=== PATIENT | male | born 1990 | race Caucasian/White ===

== ENCOUNTER 2023-08-27 13:02 | Emergency (ER) | payer BC ==
[~2023-08-27] VITALS: Ht 195 cm; Wt 129.0 kg
--- NOTE | 2023-08-27 13:29 | ED Trauma-Multisystem ---
General Chief Complaint: Trauma EMS/Air Arrival Activat Stated Complaint: HEAD INJ Nursing Triage Note: PT REPORTS HE FELL APPROX 7-8' OFF LADDER 10 MIN [employer]INICAL [employer]. ABRASIONS NOTED TO LT LEG ET HEMATOMA NOTED TO POSTERIOR HEAD. PT DENIES LOC ET NECK PAIN AT THIS TIME. DOES C/O BACK PAIN. ALSO REPORTS "CHRONIC NECK ET BACK PAIN". NO OTHER C/O VOICED. Source of Information: Patient Exam Limitations: No Limitations History of Present Illness Date Seen by Provider: Aug 27, 2023 Time Seen by Provider: 13:12 Initial Comments 33-year-old male presents to the ER after he fell off a ladder. Thinks he was approximately 5 to 7 feet in the air. He reports that he was putting up [place]oo[place] lights on the first story of his house, states that the ladder slipped down, his left leg slipped through the ladder and he fell. He thinks he landed hitting his back first and then the posterior portion of his head. He presents with multiple abrasions to the left leg, abrasion to right posterior shoulder, and hematoma to right posterior head. Allergies and Home Medications Allergies Coded Allergies: No Known Drug Allergies (Unverified , 08/27/23) Patient Home Medication List Home Medication List Reviewed: Yes Cyclobenzaprine HCl (Cyclobenzaprine HCl) 10 Mg Tablet, 10 MG PO Q8H Prescribed by: Tania Mckenzie on 08/27/23 1443 Hydrocodone/Acetaminophen (Hydrocodone-Acetamin 5-325 mg) 5 Mg-325 Mg Tablet, 1 TAB PO Q4H PRN for PAIN-MODERATE (5-7) Prescribed by: Tania Mckenzie on 08/27/23 1444 Review of Systems Review of Systems Constitutional: see HPI Past Hekuczu-Iizjtj-Skofwr Hx Patient Social History Tobacco Use?: No Use of E-Cig and/or Vaping dev: No Substance use?: No Alcohol Use?: No Pt feels they are or have been: No Past Medical History Surgery/Hospitalization HX: RT WRIST SURGERY Physical Exam Vital Signs Vital Signs - First Documented 08/27/23 13:17 Temp 37.0 Pulse 97 Resp 20 B/P (MAP) 146/88 (107) Pulse Ox 98 O2 Delivery Room Air Height, Weight, BMI Height: '" Weight: lbs. oz. kg; 33.00 BMI Method: General Appearance: No Apparent Distress, WD/WN Head: Other (Right posterior hematoma); No Active Bleeding, No Caldera's Sign Eyes: Bilateral Eye Normal Inspection, Bilateral Eye PERRL, Bilateral Eye EOMI Ears, Nose, Throat: Hearing Grossly Normal, No Evidence of ENT Injury Neck: Full Range of Motion, Normal Inspection, Non Tender, Supple Cardiovascular: Regular Rate, Rhythm Respiratory: Lungs Clear, Normal Breath Sounds, No Accessory Muscle Use, No Respiratory Distress Back: Vertebral Tenderness (Lower thoracic spine) Extremity: Normal Inspection, Normal Range of Motion Neurologic/Psychiatric: Alert, Oriented x3, No Motor/Sensory Deficits, sider II- XII Norm as Tested Skin: Normal Color, Warm/Dry Progress/Results/Core Measures Results/Orders My Orders Orders - TANIA WANG APRN Ct Head/Cervical Spine Wo (08/27/23 13:24) Ct Thoracic Spine Wo (08/27/23 13:24) Hydrocodone/Apap 5/325 Tablet (Hydrocod (08/27/23 14:45) Cyclobenzaprine Tablet (Cyclobenzaprine (08/27/23 14:45) Vital Signs/I&O 08/27/23 08/27/23 13:17 14:52 Temp 37.0 Pulse 97 95 Resp 20 20 B/P (MAP) 146/88 (107) 132/88 Pulse Ox 98 98 O2 Delivery Room Air Room Air Blood Pressure Mean: 107 Progress Progress Note : Progress Note Patient seen and evaluated, sitting on edge of bed, no acute distress. Based on exam and symptoms, CT of head, C-spine, and thoracic spine ordered. [address] head shows no acute findings of hemorrhage or acute intracranial abnormality. No findings of acute cervical spine fracture. Thoracic spine shows acute appearing superior endplate fracture of T12 compatible with an anterior column fracture. There is an approximately 10% height loss anteriorly, no retropulsion, no other acute fractures noted. Results discussed with patient and . Patient instructed to follow-up with orthospine in [place]. Will give a dose of [place] and cyclobenzaprine now, and discharged with prescription for both. Patient is stable for discharge. Discharge instructions and return precautions provided. Diagnostic Imaging Diagonstic Imaging: CT Plain Films/CT/US/NM/MRI: c-spine, head Comments [facility]. [place], [place] NAME: MASOUD HO [facility] REC#: [id number] PT STATUS: REG ER : 1990 PHYSICIAN: TANIA WANG APRN ADMIT DATE: 08/27/23/ER Signed Date of Exam:08/27/23 CT HEAD/CERVICAL SPINE WO PROCEDURE: CT head and CT cervical spine without contrast. TECHNIQUE: Multiple contiguous axial images were obtained through the brain and cervical spine without the use of intravenous contrast. Sagittal and coronal reformations through the cervical spine were then performed. Auto Exposure Controls were utilized during the CT exam to meet ALARA standards for radiation dose reduction. INDICATION: Head and neck pain. Fall. FINDINGS: There is a right posterior parietal-occipital soft tissue hematoma. There is no underlying calvarial fracture. There are no CT findings of acute intracranial hemorrhage. There is no subarachnoid blood. There are no findings of an extra-axial collection. There is no intracranial mass effect or shift. There is no hydrocephalus. Garrett and white matter differentiation are well-maintained. There are no findings of vasogenic edema. The basilar cisterns are patent. Posterior fossa is unremarkable. The mastoid air cells are clear. Some fluid within the left maxillary sinus. There is no identified facial fracture. The orbital contents are unremarkable. Cervical spine demonstrates normal cervical alignment. There are normal relationships of the craniocervical junction. There are normal relationships to the lateral masses of C1 and C2. The facets are normally aligned. There is no facet joint or disc space widening. Vertebral body heights are maintained. There is no acute cervical spine fracture. There are no CT findings to suggest high-grade canal stenosis. There is no acute soft tissue injury evident within the neck. IMPRESSION: 1. Posterior right-sided scalp hematoma without underlying calvarial fracture. 2. No findings of hemorrhage or of an acute intracranial abnormality. 3. Fluid level in left maxillary sinus is presumably inflammatory in nature. There are no facial fractures identified. 4. No findings of a cervical spine fracture or traumatic malalignment. Dictated by: Dictated on workstation # [id number] Dict: 08/27/23 1338 Trans: 08/27/23 1444 [facility] [id number] Interpreted by: VELASQUEZ JAIMES MD Electronically signed by: VELASQUEZ JAIMES MD 08/27/23 1444 Diagonstic Imaging: CT Plain Films/CT/US/NM/MRI: other (thoracic spine) Comments [facility], [place] NAME: MASOUD HO [facility] REC#: [id number] PT STATUS: REG ER : 1990 PHYSICIAN: TANIA WANG APRN ADMIT DATE: 08/27/23/ER Signed Date of Exam:08/27/23 CT THORACIC SPINE WO PROCEDURE: CT thoracic spine without contrast. TECHNIQUE: Multiple axial computerized tomography images were obtained from the base of the thoracic spine to the vertex without intravenous contrast. Auto Exposure Controls were utilized during the CT exam to meet ALARA standards for radiation dose reduction. INDICATION: Back pain. Status post fall. FINDINGS: Alignment of the thoracic spine is normal. The vertebral endplates demonstrate multiple small degenerative appearing Schmorl's nodes. It does however appear to be an acute appearing endplate fracture of the superior endplate of T12 with approximately 10% height loss anteriorly. There is no retropulsion. No other fracture is identified. The facets are normally aligned. There is no facet joint or disc space widening. There are no CT findings of high-grade thoracic canal stenosis or evidence of an abnormal epidural process. There is no identified posterior rib fracture. There is no evidence of a pneumothorax. The lungs are clear. There is no pleural collection. The aorta is normal in caliber. Kidneys are nonobstructed. IMPRESSION: 1. Normal alignment of the thoracic spine. 2. Acute-appearing superior endplate fracture of T12 compatible with an anterior column fracture. There is approximately 10% height loss anteriorly. There is no retropulsion. No other fractures are identified. 3. No evidence of thoracic canal stenosis or CT findings of an abnormal epidural process. Dictated by: Dictated on workstation # [id number] Dict: 08/27/23 1341 Trans: 08/27/23 1444 [facility] [id number] Interpreted by: VELASQUEZ JAIMES MD Electronically signed by: VELASQUEZ JAIMES MD 08/27/23 1444 Departure Impression Primary Impression: Closed T12 fracture Additional Impression: Head injury Disposition: 01 HOME, SELF-CARE Condition: Stable Departure-Patient Inst. Decision time for Depature: 14:40 [place]: [facility] [place]ructions: Vertebral Compression Fracture (DC) Add. Discharge Instructions: Below is the phone number for the orthopedic spine providers in [place]. Call them to schedule a follow-up appointment. You will need to see them or a primary care provider for pain control if you require pain medication. Take [place] as needed for pain. It may make you sleepy. It may also cause constipation. Take cyclobenzaprine as needed for muscle spasms. It may also make you sleepy. Return for severe headache, abnormal behavior, difficulty doing normal activities, recurrent vomiting, difficulty arousing, or any other new, concerning, or worsening symptoms. [facility] - [address], [address] [place], [place] [id number] All discharge instructions reviewed with patient and/or family. Voiced understanding. Scripts Cyclobenzaprine HCl (Cyclobenzaprine HCl) 10 Mg Tablet 10 MG PO Q8H, #20 TAB 0 Refills Prov: TANIA WANG APRN 08/27/23 Hydrocodone/Acetaminophen (Hydrocodone-Acetamin 5-325 mg) 5 Mg-325 Mg Tablet 1 TAB PO Q4H PRN for PAIN-MODERATE (5-7), #20 TAB 0 Refills Prov: TANIA WANG APRN 08/27/23 TANIA WANG APRN Aug 27, 2023 13:29
--- NOTE | 2023-08-27 13:44 | Diagnostic Imaging Report ---
PROCEDURE: CT head and CT cervical spine without contrast. TECHNIQUE: Multiple contiguous axial images were obtained through the brain and cervical spine without the use of intravenous contrast. Sagittal and coronal reformations through the cervical spine were then performed. Auto Exposure Controls were utilized during the CT exam to meet ALARA standards for radiation dose reduction. INDICATION: Head and neck pain. Fall. FINDINGS: There is a right posterior parietal-occipital soft tissue hematoma. There is no underlying calvarial fracture. There are no CT findings of acute intracranial hemorrhage. There is no subarachnoid blood. There are no findings of an extra-axial collection. There is no intracranial mass effect or shift. There is no hydrocephalus. Garrett and white matter differentiation are well-maintained. There are no findings of vasogenic edema. The basilar cisterns are patent. Posterior fossa is unremarkable. The mastoid air cells are clear. Some fluid within the left maxillary sinus. There is no identified facial fracture. The orbital contents are unremarkable. Cervical spine demonstrates normal cervical alignment. There are normal relationships of the craniocervical junction. There are normal relationships to the lateral masses of C1 and C2. The facets are normally aligned. There is no facet joint or disc space widening. Vertebral body heights are maintained. There is no acute cervical spine fracture. There are no CT findings to suggest high-grade canal stenosis. There is no acute soft tissue injury evident within the neck. IMPRESSION: 1. Posterior right-sided scalp hematoma without underlying calvarial fracture. 2. No findings of hemorrhage or of an acute intracranial abnormality. 3. Fluid level in left maxillary sinus is presumably inflammatory in nature. There are no facial fractures identified. 4. No findings of a cervical spine fracture or traumatic malalignment. Dictated by: Dictated on workstation # [id number]
--- NOTE | 2023-08-27 13:47 | Diagnostic Imaging Report ---
PROCEDURE: CT thoracic spine without contrast. TECHNIQUE: Multiple axial computerized tomography images were obtained from the base of the thoracic spine to the vertex without intravenous contrast. Auto Exposure Controls were utilized during the CT exam to meet ALARA standards for radiation dose reduction. INDICATION: Back pain. Status post fall. FINDINGS: Alignment of the thoracic spine is normal. The vertebral endplates demonstrate multiple small degenerative appearing Schmorl's nodes. It does however appear to be an acute appearing endplate fracture of the superior endplate of T12 with approximately 10% height loss anteriorly. There is no retropulsion. No other fracture is identified. The facets are normally aligned. There is no facet joint or disc space widening. There are no CT findings of high-grade thoracic canal stenosis or evidence of an abnormal epidural process. There is no identified posterior rib fracture. There is no evidence of a pneumothorax. The lungs are clear. There is no pleural collection. The aorta is normal in caliber. Kidneys are nonobstructed. IMPRESSION: 1. Normal alignment of the thoracic spine. 2. Acute-appearing superior endplate fracture of T12 compatible with an anterior column fracture. There is approximately 10% height loss anteriorly. There is no retropulsion. No other fractures are identified. 3. No evidence of thoracic canal stenosis or CT findings of an abnormal epidural process. Dictated by: Dictated on workstation # [id number]
[2023-08-27] MEDS ORDERED: ACHD5005 PO (14:43)
[2023-08-27] MEDS ORDERED: CYCL10TA25 PO (14:43)
[2023-08-27] MEDS ORDERED: HYDROcodone/ACETAMINOPHEN 5 MG/325 MG TABLET PO ONE (14:45)
[2023-08-27] MEDS ORDERED: CYCLOBENZAPRINE 10 MG TABLET PO ONE (14:45)
[2023-08-27 14:52] VITALS: BP 132/88
== END 2023-08-27 14:52 | disposition home or self-care (01) ==
LOC: EDUNIT# 13:02 → ER 13:07
DX: S09.90XA Unspecified injury of head, initial encounter (principal); S22.088A Other fracture of T11-T12 vertebra, initial encounter for closed fracture; M54.50 Low back pain, unspecified; W11.XXXA Fall on and from ladder, initial encounter; Y92.009 Unspecified place in unspecified non-institutional (private) residence as the place of occurrence of the external cause
CPT/HCPCS: 70450; 72125; 72128